=== PATIENT | female | born 1940 | race Caucasian/White ===

== ENCOUNTER 2016-12-21 22:49 | Emergency (ER) | payer MEDICARE ==
[~2016-12-21] VITALS: Ht 180.3 cm; Wt 72.7 kg
[~2016-12-21 22:49] MED LIST: ATEN50TA PO; CHOL10008 PO; FURO-128 PO; NPR500T PO; OXYC-465 PO; OXYC1TAB24 PO; POTA99TA21 PO
[2016-12-21 23:12] VITALS: BP 194/87; PULSE 74; RESP 12; O2SAT 98
--- NOTE | 2016-12-22 00:35 | ED.REPORT ---
HPI-Back Pain 40 and Over Date of Service Dec 22, 2016 ED Provider: Raymond Corral MD Pt is a 76 year old female with a history of chronic back pain, degenerative disc disease, breast cancer, mild canal stenosis, mild-moderate foraminal narrowing at L3-4 bilaterally, peripheral neuropathy, and multiple back injuries who presents to the ED complaining of increased lower back pain onset 2 weeks ago. She c/o associated problem walking, as well as right leg pain with weakness. She denies bowel and bladder incontinence, fever, and constipation. Pt reports that she has experienced similar symptoms previously. The pt denies recent falls or injury. Nursing Notes Stated Complaint: BACK PAIN Chief Complaint: Back Pain or Injury Nursing Notes Reviewed: Yes Allergies: Coded Allergies: Iodinated Contrast- Oral and IV Dye (Verified Allergy, Intermediate, 04/22) Sulfa (Sulfonamide Antibiotics) (Verified Allergy, Intermediate, 04/22/16) Scheduled Atenolol (Atenolol) 50 Mg Tablet 50 MG PO DAILY Furosemide (Lasix) 40 Mg Tablet 40 MG PO DAILY Methylprednisolone (MethylprednisoLONE Dose Omar) 4 Mg Tab.ds.pk 4 MG PO UD Follow direction on package. Scheduled PRN Naproxen (Naproxen) 500 Mg Tab 500 MG PO BID PRN PRN For Pain oxyCODONE-Acetaminophen 5-325 mg (oxyCODONE-Acetaminophen 5-325 mg) 1 Each Tablet 1-2 TAB PO Q6H PRN PRN For Pain this is in ADDITION to your monthly percoset and for acute pain from your fall oxyCODONE-Acetaminophen 7.5-325 mg (oxyCODONE-Acetaminophen 7.5-325 mg) 1 Each Tablet 1 TAB PO TID PRN PRN For Pain Miscellaneous Medications Cholecalciferol (Vitamin D3) (Vitamin D3) 1,000 Unit Tab.chew 1,000 UNIT PO Potassium Gluconate (Potassium) 99 Mg Tablet 99 MG PO General Time Seen by MD: 00:34 Chief Complaint Back pain Hx Obtained From: Patient Arrived By: Walk-in Sudden in Onset?: No Onset Occurred: More than a week ago... (2 weeks) Symptom Duration: Since onset Location: : Generalized Quality: Painful Radiation: : Right leg above knee Severity: Current: Moderate Severity: Maximum: Moderate Recent Healthcare: Recent doctor visit Similar Sx Previous: Yes Past Medical History Past Medical History Breast cancer (05/10), no spinal METS seen Lumbar MRI (08/08), degenerative disc disease, mild canal stenosis, mild-moderate formaminal narrowing at L3-4 bilaterally Peripheral neuropathy Previous back injuries Reports: Hypertension Past Surgical History Back surgery x3 Multiple abdominal surgeries Reports: Appendectomy Family History noncontributory Smoking History Never Smoker Social History Alcohol Use: Denies alcohol use Drug Use: Denies drug use Other Social History: Good social support, , Local resident Ambulatory Status Independent Review of Systems Constitutional: Denies: Fever GI: Denies: Constipation Female: Denies: Incontinence (bowel or urinary) Musculoskeletal: Reports: Back pain, Extremity pain Neurologic: Reports: Problem walking, Weakness (Right leg) Complete sys rev & neg: except as marked. Physical Exam Initial Vital Signs Vital Signs (First) Date Time Temp Pulse Resp B/P Pulse Ox O2 Delivery O2 Flow Rate FiO2 12/21/16 23:12 36.6 74 12 194/87 98 Room Air Initial VS: Reviewed Head / Eyes: Atraumatic, Normocephalic Extremities: Vascular intact, Neuro intact Skin: Warm, Dry, No cyanosis Psychiatric: Mood/affect normal, Behavior normal General/Constitutional: Awake, Alert Respiratory / Chest: Atraumatic, Breath sounds NL, Breath sounds = bilat Cardiovascular: Heart rate NL, Regular rhythm, Heart sounds NL Abdomen: Atraumatic, Soft Back: Full range of motion Midline scar over lumbar spine consistent with surgery. Pain primarily at L4-5, radiating down right leg. Neurologic: Oriented X3, Speech NL Decreased sensation in the feet. Feet pull - 5/5. Straight leg raise is positive on the right. Interpretation & Diagnostics X-Ray Interpretation Xray Interpretation: Lumbar spine 2 or 3 view Study Performed: Degenerative changes. Scoliosis. No acute process identified. Interpretation / Wet Read by: Wet read ED physician Re-Eval/Medical Decision Med Decision/Clinical Course Initial hypertension is significantly improved prior to discharge Source of Hx: Old records Re-Evaluation/Progress : Time of Eval: 01:54 Patient Status: Condition improved Re-Evaluation/Progress Note: Pt rechecked. Informed pt of plan for discharge. Pt understands and agrees with plan for discharge. F/U instructions and RTER warnings given. All questions addressed. Counseled Regarding: Diagnosis, Need for follow-up, When/why to return to ED Discharge & Departure Impression: Primary Impression: Back pain Back pain location: low back pain Chronicity: acute Back pain laterality: right Sciatica presence: with sciatica Sciatica laterality: sciatica of right side Qualified Code: M54.41 - Lumbago with sciatica, right side Disposition: Home Discharge Condition All VS Reviewed: Yes Condition: Stable Patient Instructions: Sciatica (ED) Additional Instructions: Use the oxycodone/apap that you have at home for pain. May need to increase dose to 1 and 1/2 3 times a day or 1 4 times a day short term. Be sure to talk to your doctor about this. Medrol dose pack as prescribed- start this Friday evening. return to ED for new weakness in legs, problems with bowel or bladder control. Referrals: Chelly Aquino Attestation Portions of this note were transcribed by Penelope Rosas. I, Dr. Corral personally performed the history, physical exam and medical decision-making; I reviewed and confirmed the accuracy of the information in the transcribed note. Signed by : Rossy Lopez, 12/22/16. copies to: Chelly Aquino Donald L MD Dec 22, 2016 00:35 Penelope Badillo Dec 22, 2016 00:45
[2016-12-22] MEDS ORDERED: predniSONE 20 mg Tablet PO ONE (00:55)
[2016-12-22] MEDS ORDERED: METH4TAB11 PO (02:01)
[2016-12-22 02:06] VITALS: BP 160/71; PULSE 67; RESP 16; O2SAT 97
--- NOTE | 2016-12-22 08:00 | DRSVH ---
PROCEDURE: X-RAY LUMBAR SPINE, 2 OR 3 VIEW INDICATIONS: 76 year-old female with breast carcinoma and back pain. TECHNIQUE: 3 views of the lumbar spine were acquired. COMPARISON: [facility], , SPINE LUMB 2 OR 3VW, 04/06/2012, 13:45. FINDINGS: Bones: 5 [id number] vertebrae are present. There is mild lumbar spine dextroscoliosis as before . No vertebral body compression fractures. Mid and lower lumbar spine degenerative disc narrowing i s again noted. No suspicious bony lesions. Soft tissues: Overlying bowel gas pattern is normal. Multiple abdominal and pelvic surgical clips w ith scattered bowel anastomotic staple lines are again noted. No suspicious soft tissue calcification s. 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 IMPRESSION: 1. Mid and lower lumbar spine disc degeneration as before. 2. Mild rotatory dextroscoliosis is also unchanged. Dictated by: Alex Dang M.D. on 12/22/2016 at 7:56 Approved by: Alex Dang M.D. on 12/22/2016 at 7:58
== END 2016-12-22 02:12 | disposition home or self-care (01) ==
LOC: SED 23:41
DX: M54.41 Lumbago with sciatica, right side (principal); I10 Essential (primary) hypertension; Z98.890 Other specified postprocedural states; Z88.2 Allergy status to sulfonamides; Z88.8 Allergy status to other drugs, medicaments and biological substances; Z87.828 Personal history of other (healed) physical injury and trauma